=== PATIENT | male | born 1980 | race Caucasian/White ===

== ENCOUNTER 2021-02-05 13:30 | Day surgery (SDC) | payer BC ==
[2021-02-05] MEDS ORDERED: Depo-Medrol 40 MG/ML IM ONE (13:31)
[2021-02-05] MEDS ORDERED: BUPIVACAINE 0.5% VIAL IJ ONE (13:31)
[2021-02-05] MEDS ORDERED: Xylocaine 1% Vial 30 ML PF IJ ONE (13:31)
--- NOTE | 2021-02-05 15:13 | XRAY ---
22 seconds fluoroscopy time in surgery for bilateral SI joint injections.
--- NOTE | 2021-02-05 15:23 | XRAY ---
Indication: Bilateral SI joint injection. Intraoperative fluoroscopy provided for 22 seconds. 4 digital spot images submitted for interpretation demonstrates posterior needle tip projecting over the inferior left and right SI joint. Correlate with intraoperative findings/report.
== END 2021-02-05 14:56 | disposition home or self-care (01) ==
LOC: SDC-PAIN 13:30
PROVIDERS: ATTEND Psychiatry & Neurology Pain Medicine
DX: M46.1 Sacroiliitis, not elsewhere classified (principal); Z79.899 Other long term (current) drug therapy
CPT/HCPCS: 27096; 72202; 77002; J1030; J2001; G0260

== ENCOUNTER 2021-08-06 13:27 | Day surgery (SDC) | payer BC ==
[2021-08-06] MEDS ORDERED: BUPIVACAINE 0.5% VIAL IJ ONE (13:28)
[2021-08-06] MEDS ORDERED: Xylocaine 1% Vial 30 ML PF IJ ONE (13:28)
[2021-08-06] MEDS ORDERED: Depo-Medrol 40 MG/ML IM ONE (13:28)
--- NOTE | 2021-08-06 16:29 | XRAY ---
25 seconds fluoroscopy time in surgery for bilateral SI joint injections.
--- NOTE | 2021-08-06 16:39 | XRAY ---
Indication: Bilateral SI joint injection. Intraoperative fluoroscopy provided for 25 seconds. 5 digital spot images submitted for interpretation demonstrates posterior needle tip projecting over the inferior left and right SI joints. Correlate with intraoperative findings/report.
== END 2021-08-06 16:27 | disposition home or self-care (01) ==
LOC: SDC-PAIN 13:27
PROVIDERS: ATTEND Psychiatry & Neurology Pain Medicine
DX: M46.1 Sacroiliitis, not elsewhere classified (principal)
CPT/HCPCS: 27096; 72202; 77002; J1030; J2001; G0260